=== PATIENT | male | born 1980 | race Caucasian/White ===

== ENCOUNTER 2020-12-26 04:12 | Emergency (ER) | payer MEDICAID ==
[~2020-12-26] VITALS: Ht 190.5 cm; Wt 67.1 kg
--- NOTE | 2020-12-26 05:20 | NUR ---
pt to CT
[2020-12-26] MEDS ORDERED: OXYcodone/APAP 5/325MG TABLET ONE (05:23)
[2020-12-26] MEDS ORDERED: OXYcodone/APAP 5/325MG TABLET PO ONE (05:30)
--- NOTE | 2020-12-26 05:34 | NUR ---
pt back from [place]
--- NOTE | 2020-12-26 06:14 | NUR ---
pt reports that his pain has dropped to 5/10
[2020-12-26 06:44] VITALS: BP 112/73
== END 2020-12-26 07:09 | disposition home or self-care (01) ==
LOC: ED 06:25
DX: S29.8XXA Other specified injuries of thorax, initial encounter (principal); W01.0XXA Fall on same level from slipping, tripping and stumbling without subsequent striking against object, initial encounter; Y93.89 Activity, other specified; Y92.009 Unspecified place in unspecified non-institutional (private) residence as the place of occurrence of the external cause; Y99.8 Other external cause status
CPT/HCPCS: 71250; 99284